=== PATIENT | female | born 1980 | race Caucasian/White ===

== ENCOUNTER 2020-08-31 10:45 | Outpatient (RCR) | payer OTHER | END 2020-10-09 | disposition home or self-care (01) | LOC: PT.GENESIS | DX: M54.41 Lumbago with sciatica, right side (principal) ==

== ENCOUNTER → 2023-05-30 | Outpatient (CLI) | payer BC ==
[~2023-05-30] VITALS: Ht 165.1 cm; Wt 67.5 kg
[~2023-05-30] MED LIST: MASON NATURAL2000 IU PO; TYLENOL 500MG500 MG PO; Triamcinolone 40 MG/ML 1 ML VIAL IJ SCH; ULTRAM 50MG TAB50 MG PO; WELLBUTRIN XL150 MG PO
[2023-05-30 08:58] VITALS: BP 138/89; PULSE 73; TEMP 97.7
[2023-05-30 09:56] VITALS: BP 133/93; PULSE 67
== END ==
LOC: COL.RAD 08:40
DX: M54.41 Lumbago with sciatica, right side (principal); M51.9 Unspecified thoracic, thoracolumbar and lumbosacral intervertebral disc disorder
CPT/HCPCS: J0665; J3301

== ENCOUNTER 2023-08-06 08:00 | Outpatient (RCR) | payer BC ==
[~2023-08-06 08:00] MED LIST changes: -Triamcinolone 40 MG/ML 1 ML VIAL IJ SCH
== END 2023-08-08 ==
LOC: PT.GENESIS
DX: M54.41 Lumbago with sciatica, right side (principal)